=== PATIENT | male | born 1995 | race African-American/Black ===

== ENCOUNTER 2024-06-16 14:26 | Inpatient (IN) | payer MEDICAID ==
[~2024-06-16] VITALS: Ht 172.7 cm; Wt 66.7 kg
[2024-06-16] VITALS (29 sets, daily range): BP systolic 109–148; BP diastolic 61–102; PULSE 113–126; RESP 19–37; TEMP 36.8–37.2; O2SAT 99–100
[2024-06-16] MEDS: SODIUM CHLORIDE 0.9% 1,000 ML IV ONE ×3 (14:53→15:28)
[2024-06-16] MEDS: ONDANSETRON HCL 4MG/2ML INJ IV ONE (14:53)
[2024-06-16] MEDS: FAMOTIDINE 20MG/2ML VIAL IV ONE (14:53)
[2024-06-16 15:01] LABS: HEMATOCRIT. 41.6 % (42.0-52.0); HEMOGLOBIN. 12.9 g/dL (14.0-18.0); MEAN CORPUSCULAR HEMOGLOBIN 23.3 pg (28.0-32.0); MEAN CORPUSCULAR VOLUME 75.3 fL (80.0-94.0); MEAN PLATELET VOLUME 8.9 fl (7.4-10.4); PLATELET 288 x1000/uL (130-400); RED BLOOD CELL COUNT 5.53 mill/uL (4.7-6.1); WHITE BLOOD COUNT 35.6 x1000/uL (4.5-11.0)
[2024-06-16 15:02] LABS: DIFFERENTIAL COMMENT 1
[2024-06-16 15:04] LABS: BG BASE EXCESS -22.3 mmol/L (-2.0-3.0); BG CARBOXYHEMOGLOBIN 0.8 % (0.5-1.5); BG DEOXYHEMOGLOBIN 1.9 % (0.0-5.0); BG FRACTION INSPIRED OXYGEN 21; BG HCO3 ACT 4.2 mmol/L (21.0-28.0); BG METHEMOGLOBIN 0.1 % (0.5-1.5); BG OXYGEN SATURATION 98.1 % (94.0-98.0); BG OXYHEMOGLOBIN 97.2 % (94.0-98.0); BG PCO2 12.4 mmHg (35.0-48.0); BG PH 7.146 (7.350-7.450); BG PO2 127.9 mmHg (83.0-108.0); BG SAMPLE SITE RIGHT RADIAL; BG TOTAL HEMOGLOBIN 13.5 g/dL (13.5-17.5); BG VENT MODE ROOM AIR
[2024-06-16 15:07] LABS: CHLORIDE 83 mEq/L (98-107); POTASSIUM 5.4 mEq/L (3.5-5.1)
[2024-06-16 15:09] LABS: CALCIUM 9.9 mg/dL (8.7-10.4)
[2024-06-16 15:13] LABS: CREATININE 2.3 mg/dL (0.6-1.3); UREA NITROGEN BLOOD 63 mg/dL (9-23)
[2024-06-16] MEDS ORDERED: POTASSIUM CHLORIDE 40 MEQ in SODIUM CHLORIDE 0.9% 230 ML IV PRN (15:15)
[2024-06-16] MEDS ORDERED: MAGNESIUM 2 G PREMIX 50 ML IV PRN ×2 (15:15→17:00)
[2024-06-16] MEDS ORDERED: BLOOD SUGAR DIAGNOSTIC STRIP TEST PRN ×2 (15:15→17:00)
[2024-06-16] MEDS: DEXT 5%/0.9% NACL 1,000 ML IV SCH ×2 (15:15→22:26)
[2024-06-16] MEDS ORDERED: SODIUM PHOSPHATE 15 MMOL in SODIUM CHLORIDE 0.9% 245 ML IV PRN (15:15)
[2024-06-16] MEDS ORDERED: KCL 20MEQ/100ML PREMIX 100 ML IV PRN (15:15)
[2024-06-16] MEDS ORDERED: DEXTROSE 50% WATER 50ML SYRINGE IV PRN ×2 (15:15→17:00)
[2024-06-16 15:16] LABS: BETA HYDROXYBUTYRATE 8.1 mMol/L (0.0-0.3)
[2024-06-16] MEDS: BLOOD SUGAR DIAGNOSTIC STRIP TEST SCH ×2 (15:28→17:04)
[2024-06-16] MEDS: SODIUM CHLORIDE 0.9% 1,000 ML IV SCH ×2 (15:29→18:10)
[2024-06-16] MEDS: INSULIN REGULAR (DRIP) 100 UNITS in SODIUM CHLORIDE 0.9% 99 ML IV SCH (15:29)
[2024-06-16 15:32] LABS: CARBON DIOXIDE < 10 mEq/L (21-32)
[2024-06-16 15:33] LABS: GLUCOSE 577 mg/dL (70-105); SODIUM 114 mEq/L (136-145); TROPONIN I HIGH SENSITIVITY < 4 ng/L (3.0-53)
[2024-06-16 15:34] LABS: PLATELET ESTIMATE NORMAL
[2024-06-16 15:35] LABS: ANISOCYTOSIS 1+; HYPOCHROMASIA 1+; MICROCYTOSIS 1+
[2024-06-16 16:18] LABS: PHOSPHORUS 5.5 mg/dL (2.5-4.9)
[2024-06-16 16:40] LABS: CLARITY URINE CLEAR (CLEAR); COLOR URINE YELLOW (YELLOW); GLUCOSE URINE 3+ (NEGATIVE); KETONES URINE 3+ (NEGATIVE); LEUKOCYTE ESTERASE URINE NEGATIVE (NEGATIVE); NITRITE URINE NEGATIVE (NEGATIVE); OCCULT BLOOD URINE 3+ (NEGATIVE); PROTEIN URINE 2+ (NEGATIVE); SPECIFIC GRAVITY URINE 1.021 (1.005-1.030); UROBILINOGEN URINE 0.2 E.U./dL (0.2-1.0)
[2024-06-16] MEDS ORDERED: PIPERACILLIN/TAZO 3.375G/50ML 50 ML IV NR (16:45)
[2024-06-16 17:00] LABS: BG BASE EXCESS -21.9 mmol/L (-2.0-3.0); BG CARBOXYHEMOGLOBIN 0.8 % (0.5-1.5); BG DEOXYHEMOGLOBIN 1.5 % (0.0-5.0); BG FRACTION INSPIRED OXYGEN 21; BG HCO3 ACT 4.7 mmol/L (21.0-28.0); BG METHEMOGLOBIN 0.3 % (0.5-1.5); BG OXYGEN SATURATION 98.5 % (94.0-98.0); BG OXYHEMOGLOBIN 97.4 % (94.0-98.0); BG PCO2 13.7 mmHg (35.0-48.0); BG PO2 131.4 mmHg (83.0-108.0); BG SAMPLE SITE RIGHT RADIAL; BG TOTAL HEMOGLOBIN 12.5 g/dL (13.5-17.5); BG VENT MODE ROOM AIR
[2024-06-16] MEDS ORDERED: CLONIDINE 0.1MG TABLET PO PRN (17:00)
[2024-06-16] MEDS ORDERED: ONDANSETRON HCL 4MG/2ML INJ IV PRN (17:00)
[2024-06-16] MEDS ORDERED: DOCUSATE SODIUM 100MG CAPSULE PO PRN (17:00)
[2024-06-16] MEDS ORDERED: GUAIFENESIN 200MG/10ML SUGAR FREE UDC PO PRN (17:00)
[2024-06-16] MEDS ORDERED: POTASSIUM CHLORIDE 40 MEQ in SODIUM CHLORIDE 0.9% 250 ML IV PRN (17:00)
[2024-06-16] MEDS ORDERED: MAGNESIUM/ALUMINUM HYDROXIDE/SIMETHICONE 30ML UDC PO PRN (17:00)
[2024-06-16] MEDS ORDERED: ACETAMINOPHEN 325MG TABLET PO PRN (17:00)
[2024-06-16 17:12] LABS: WBC URINE 0-2 /hpf (0-2)
[2024-06-16 17:13] LABS: BACTERIA URINE 1+; SQUAMOUS EPITHELIAL CELL URINE FEW /lpf (RARE/1+)
[2024-06-16] MEDS: INSULIN REGULAR 100U/100ML PMX 100 ML IV SCH (18:09)
[2024-06-16 20:03] LABS: CHLORIDE 96 mEq/L (98-107); POTASSIUM 4.8 mEq/L (3.5-5.1); SODIUM 124 mEq/L (136-145)
[2024-06-16 20:04] LABS: CALCIUM 8.8 mg/dL (8.7-10.4)
[2024-06-16 20:09] LABS: UREA NITROGEN BLOOD 48 mg/dL (9-23)
[2024-06-16 20:11] LABS: PHOSPHORUS 2.6 mg/dL (2.5-4.9)
[2024-06-16 20:28] LABS: CARBON DIOXIDE < 10 mEq/L (21-32); CREATININE 1.6 mg/dL (0.6-1.3); GLUCOSE 331 mg/dL (70-105)
[2024-06-16] MEDS: PIPERACILLIN/TAZO 3.375G/50ML 50 ML IV SCH (22:00)
[2024-06-16] MEDS: LORAZEPAM 0.5MG TABLET PO PRN (22:26)
[2024-06-16] MEDS ORDERED: VANCOMYCIN 1.25GM PMX (XELLIA) 250 ML IV NR (23:00)
[2024-06-16] MEDS: VANCOMYCIN 1G PREMIX 200 ML IV NR (23:11)
[2024-06-17] VITALS (78 sets, daily range): BP systolic 119–162; BP diastolic 60–108; PULSE 92–135; RESP 15–39; TEMP 36.9–38.9; O2SAT 96–100
[2024-06-17] MEDS: ACETAMINOPHEN 325MG TABLET PO PRN (00:26)
[2024-06-17 00:29] LABS: CHLORIDE 102 mEq/L (98-107); POTASSIUM 4.3 mEq/L (3.5-5.1); SODIUM 130 mEq/L (136-145)
[2024-06-17 00:37] LABS: PHOSPHORUS 1.5 mg/dL (2.5-4.9)
[2024-06-17 00:44] LABS: CARBON DIOXIDE 10 mEq/L (21-32)
[2024-06-17 05:35] LABS: CARBON DIOXIDE 15 mEq/L (21-32); CHLORIDE 106 mEq/L (98-107); POTASSIUM 3.6 mEq/L (3.5-5.1); SODIUM 132 mEq/L (136-145); SODIUM 134 mEq/L (136-145)
[2024-06-17 05:36] LABS: CALCIUM 8.5 mg/dL (8.7-10.4); CARBON DIOXIDE 15 mEq/L (21-32)
[2024-06-17 05:40] LABS: CREATININE 1.4 mg/dL (0.6-1.3)
[2024-06-17 05:41] LABS: LDL CHOLESTEROL 42 mg/dL (5-100); TRIGLYCERIDE 143 mg/dL (0-150); UREA NITROGEN BLOOD 30 mg/dL (9-23)
[2024-06-17 05:42] LABS: CHOLESTEROL 96 mg/dL (<200); HDL CHOLESTEROL < 20 mg/dL (>55)
[2024-06-17 05:44] LABS: PHOSPHORUS 1.1 mg/dL (2.5-4.9)
[2024-06-17 05:46] LABS: T4 FREE 0.75 ng/dL (0.89-1.76)
[2024-06-17 05:47] LABS: THYROID STIMULATING HORMONE 1.17 uIU/mL (0.55-4.78)
[2024-06-17 06:11] LABS: GLUCOSE 175 mg/dL (70-105)
[2024-06-17] MEDS: KCL 20MEQ/100ML PREMIX 100 ML IV PRN (07:53)
[2024-06-17] MEDS: VANCOMYCIN 750MG PREMIX 150 ML IV SCH (08:38)
[2024-06-17] MEDS: INSULIN GLARGINE 100 UNITS/ML SUBCUT SCH ×2 (08:40→21:19)
[2024-06-17] MEDS: INSULIN LISPRO 100 UNITS/ML SUBCUT SCH ×2 (08:40→17:40)
[2024-06-17 09:47] LABS: *AMPHETAMINES SCREEN URINE NEGATIVE (NEGATIVE); *BARBITURATES SCREEN URINE NEGATIVE (NEGATIVE); *BENZODIAZEPINES SCREEN URINE NEGATIVE (NEGATIVE)
[2024-06-17 09:48] LABS: *COCAINE SCREEN URINE NEGATIVE (NEGATIVE); CANNABINOID URINE SCREEN PRESUMPTIVE POSITIVE (NEGATIVE); ECSTASY MDMA SCREEN URINE NEGATIVE (NEGATIVE); METHADONE URINE SCREEN NEGATIVE (NEGATIVE); OPIATES URINE SCREEN NEGATIVE (NEGATIVE); PHENCYCLIDINE URINE SCREEN NEGATIVE (NEGATIVE)
[2024-06-17] MEDS: SODIUM PHOSPHATE 15 MMOL in SODIUM CHLORIDE 0.9% 250 ML IV PRN (10:21)
[2024-06-17] MEDS: BLOOD SUGAR DIAGNOSTIC STRIP TEST SCH ×2 (11:34→16:31)
[2024-06-17] MEDS ORDERED: DEXTROSE 50% WATER 50ML SYRINGE IV PRN (14:45)
[2024-06-17 16:33] LABS: CHLORIDE 104 mEq/L (98-107); POTASSIUM 3.3 mEq/L (3.5-5.1); SODIUM 130 mEq/L (136-145)
[2024-06-17 16:34] LABS: CALCIUM 8.1 mg/dL (8.7-10.4); CARBON DIOXIDE 16 mEq/L (21-32)
[2024-06-17 16:39] LABS: CREATININE 1.2 mg/dL (0.6-1.3); GLUCOSE 307 mg/dL (70-105); UREA NITROGEN BLOOD 17 mg/dL (9-23)
[2024-06-17 16:41] LABS: PHOSPHORUS 1.1 mg/dL (2.5-4.9)
[2024-06-17 17:00] LABS: IRON 16 ug/dL (65-175)
[2024-06-17 17:02] LABS: TOTAL IRON BINDING CAPACITY 668 ug/dl (250-425)
[2024-06-17] MEDS: SODIUM CHLORIDE 0.9% 1,000 ML IV SCH (17:39)
[2024-06-17] MEDS: POTASSIUM PHOSPHATE 30 MMOL in SODIUM CHLORIDE 0.9% 500 ML IV NR (17:49)
[2024-06-18] VITALS (12 sets, daily range): BP systolic 127–146; BP diastolic 64–94; PULSE 102–134; RESP 18–36; TEMP 36.6–37.5; O2SAT 96–99
[2024-06-18] MEDS: SODIUM CHLORIDE 0.9% 1,000 ML IV ONE (03:41)
[2024-06-18] MEDS: METOCLOPRAMIDE HCL 10MG/2ML VIAL IV NR (03:45)
[2024-06-18 04:43] LABS: CHLORIDE 99 mEq/L (98-107); POTASSIUM 2.9 mEq/L (3.5-5.1); SODIUM 128 mEq/L (136-145)
[2024-06-18 04:44] LABS: CALCIUM 7.9 mg/dL (8.7-10.4); CARBON DIOXIDE 17 mEq/L (21-32)
[2024-06-18 04:49] LABS: GLUCOSE 182 mg/dL (70-105); UREA NITROGEN BLOOD 13 mg/dL (9-23)
[2024-06-18 04:57] LABS: PHOSPHORUS 0.9 mg/dL (2.5-4.9)
[2024-06-18] MEDS: POTASSIUM CHLORIDE 20MEQ TABLET SR PO NR (05:31)
[2024-06-18] MEDS: POTASSIUM PHOSPHATE 30 MMOL in SODIUM CHLORIDE 0.9% 490 ML IV NR (06:22)
[2024-06-18] MEDS: MAGNESIUM 2 G PREMIX 50 ML IV NR (06:23)
[2024-06-18 07:29] LABS: HEMATOCRIT. 28.8 % (42.0-52.0); HEMOGLOBIN. 9.5 g/dL (14.0-18.0); MEAN CORPUSCULAR HEMOGLOBIN 23.3 pg (28.0-32.0); MEAN CORPUSCULAR HGB CONC 33.1 g/dL (31.0-37.0); MEAN CORPUSCULAR VOLUME 70.3 fL (80.0-94.0); MEAN PLATELET VOLUME 8.8 fl (7.4-10.4); PLATELET 141 x1000/uL (130-400); RED CELL DISTRIBUTION WIDTH 15.5 % (11.6-14.6); WHITE BLOOD COUNT 15.7 x1000/uL (4.5-11.0)
[2024-06-18 07:42] LABS: DIFFERENTIAL COMMENT 1
[2024-06-18] MEDS: FERROUS SULFATE 325MG TABLET PO SCH (08:39)
[2024-06-18] MEDS: ASCORBIC ACID 250 MG TABLET PO SCH (08:40)
[2024-06-18 12:14] LABS: PHOSPHORUS 2.5 mg/dL (2.5-4.9)
[2024-06-18] MEDS: POTASSIUM CHLORIDE 20MEQ/PACKET PO NR (15:24)
[2024-06-18 16:59] LABS: HYPOCHROMASIA 1+; MICROCYTOSIS 2+; PLATELET ESTIMATE NORMAL
[2024-06-19] VITALS: BP 125/86; PULSE 114; RESP 19; TEMP 36.9; O2SAT 100
[2024-06-19 04:00] VITALS: BP 121/79; PULSE 118; RESP 19; TEMP 36.7; O2SAT 97
[2024-06-19 06:45] LABS: CARBON DIOXIDE 16 mEq/L (21-32); CHLORIDE 98 mEq/L (98-107); SODIUM 131 mEq/L (136-145)
[2024-06-19 06:46] LABS: CALCIUM 8.7 mg/dL (8.7-10.4)
[2024-06-19 06:48] LABS: HEMATOCRIT. 29.8 % (42.0-52.0); MEAN CORPUSCULAR HEMOGLOBIN 23.1 pg (28.0-32.0); MEAN CORPUSCULAR HGB CONC 33.7 g/dL (31.0-37.0); MEAN CORPUSCULAR VOLUME 68.7 fL (80.0-94.0); MEAN PLATELET VOLUME 8.5 fl (7.4-10.4); PLATELET 162 x1000/uL (130-400); RED BLOOD CELL COUNT 4.34 mill/uL (4.7-6.1); RED CELL DISTRIBUTION WIDTH 15.7 % (11.6-14.6); WHITE BLOOD COUNT 17.6 x1000/uL (4.5-11.0)
[2024-06-19 06:51] LABS: CREATININE 1.1 mg/dL (0.6-1.3); GLUCOSE 302 mg/dL (70-105); UREA NITROGEN BLOOD 14 mg/dL (9-23)
[2024-06-19 06:53] LABS: PHOSPHORUS 1.5 mg/dL (2.5-4.9)
[2024-06-19 06:56] LABS: DIFFERENTIAL COMMENT 1
[2024-06-19 07:03] LABS: TROPONIN I HIGH SENSITIVITY < 4 ng/L (3.0-53)
[2024-06-19 08:00] VITALS: BP 124/89; PULSE 100; RESP 17; TEMP 36.7; O2SAT 100
[2024-06-19] MEDS: POTASSIUM CHLORIDE 20MEQ/PACKET PO NR (08:45)
[2024-06-19] MEDS: INSULIN REGULAR (HUMULIN R) 1000UNITS/10ML VIAL IV NR (08:53)
[2024-06-19] MEDS: POTASSIUM PHOSPHATE 20 MMOL in DEXT 5% WATER 243.3333 ML IV NR (11:56)
[2024-06-19 12:00] VITALS: BP 127/82; PULSE 93; RESP 19; TEMP 36.3; O2SAT 98
[2024-06-19] MEDS: AMPICILLIN SOD/SULBACTAM NA 3 G in SODIUM CHLORIDE 0.9% 100 ML IV SCH (15:00)
[2024-06-19 16:00] VITALS: BP 122/73; PULSE 86; RESP 18; TEMP 36.7; O2SAT 98
[2024-06-19] MEDS: INSULIN LISPRO 100 UNITS/ML SUBCUT SCH (17:59)
[2024-06-19 20:00] VITALS: BP 135/20; PULSE 127; RESP 20; TEMP 36.6
[2024-06-19 20:28] LABS: HYPOCHROMASIA 1+; MICROCYTOSIS 3+; PLATELET ESTIMATE NORMAL
[2024-06-19] MEDS: INSULIN GLARGINE 100 UNITS/ML SUBCUT SCH (21:47)
[2024-06-20] VITALS: BP 137/83; PULSE 106; RESP 20; TEMP 36.7; O2SAT 96
[2024-06-20 04:00] VITALS: BP 134/83; PULSE 100; RESP 20; TEMP 36.6; O2SAT 98
[2024-06-20 06:25] LABS: CHLORIDE 97 mEq/L (98-107); SODIUM 131 mEq/L (136-145)
[2024-06-20 06:26] LABS: CALCIUM 7.8 mg/dL (8.7-10.4); CARBON DIOXIDE 23 mEq/L (21-32)
[2024-06-20 06:27] LABS: HEMATOCRIT. 28.1 % (42.0-52.0); HEMOGLOBIN. 9.3 g/dL (14.0-18.0); MEAN CORPUSCULAR HEMOGLOBIN 22.9 pg (28.0-32.0); MEAN CORPUSCULAR HGB CONC 33.3 g/dL (31.0-37.0); MEAN CORPUSCULAR VOLUME 68.7 fL (80.0-94.0); MEAN PLATELET VOLUME 8.7 fl (7.4-10.4); PLATELET 171 x1000/uL (130-400); RED BLOOD CELL COUNT 4.08 mill/uL (4.7-6.1); RED CELL DISTRIBUTION WIDTH 15.9 % (11.6-14.6); WHITE BLOOD COUNT 17.8 x1000/uL (4.5-11.0)
[2024-06-20 06:32] LABS: CREATININE 1.1 mg/dL (0.6-1.3); GLUCOSE 317 mg/dL (70-105); UREA NITROGEN BLOOD 12 mg/dL (9-23)
[2024-06-20 06:34] LABS: PHOSPHORUS 1.5 mg/dL (2.5-4.9)
[2024-06-20 06:46] LABS: DIFFERENTIAL COMMENT 1
[2024-06-20 08:00] VITALS: BP 135/83; PULSE 102; PULSE 105; RESP 20; TEMP 36.5; O2SAT 94; O2SAT 99
[2024-06-20] MEDS: POTASSIUM CHLORIDE 20MEQ/PACKET PO NR (08:36)
[2024-06-20] MEDS: POTASSIUM PHOSPHATE 20 MMOL in DEXT 5% WATER 243.3333 ML IV NR (10:28)
[2024-06-20 12:00] VITALS: BP 129/82; PULSE 104; RESP 20; TEMP 36.6; O2SAT 100
[2024-06-20 13:53] LABS: ANISOCYTOSIS 1+; PLATELET ESTIMATE NORMAL
[2024-06-20 16:00] VITALS: BP 144/86; PULSE 104; RESP 19; TEMP 36.7; O2SAT 99
[2024-06-20 20:00] VITALS: BP 122/76; PULSE 107; RESP 18; TEMP 37.3; O2SAT 100
[2024-06-20] MEDS ORDERED: INSULIN LISPRO 100 UNITS/ML SUBCUT SCH (21:00)
[2024-06-20] MEDS: INSULIN LISPRO (LOW DOSE) 100 UNITS/ML SUBCUT SCH (21:59)
[2024-06-20] MEDS: INSULIN GLARGINE 100 UNITS/ML SUBCUT SCH (22:00)
[2024-06-21] VITALS (7 sets, daily range): BP systolic 119–152; BP diastolic 78–91; PULSE 97–131; RESP 16–18; TEMP 36.3–37.5; O2SAT 96–100
[2024-06-21] MEDS: INSULIN LISPRO 100 UNITS/ML SUBCUT SCH ×2 (06:22→18:13)
[2024-06-21 06:46] LABS: HEMOGLOBIN. 9.4 g/dL (14.0-18.0); MEAN CORPUSCULAR HEMOGLOBIN 23.5 pg (28.0-32.0); MEAN CORPUSCULAR HGB CONC 33.6 g/dL (31.0-37.0); MEAN PLATELET VOLUME 9.5 fl (7.4-10.4); PLATELET 215 x1000/uL (130-400); RED CELL DISTRIBUTION WIDTH 16.1 % (11.6-14.6); WHITE BLOOD COUNT 19.3 x1000/uL (4.5-11.0)
[2024-06-21 06:55] LABS: CHLORIDE 100 mEq/L (98-107); POTASSIUM 4.1 mEq/L (3.5-5.1); SODIUM 136 mEq/L (136-145)
[2024-06-21 06:56] LABS: CALCIUM 7.7 mg/dL (8.7-10.4); CARBON DIOXIDE 24 mEq/L (21-32)
[2024-06-21 07:01] LABS: GLUCOSE 306 mg/dL (70-105); UREA NITROGEN BLOOD 11 mg/dL (9-23)
[2024-06-21 07:02] LABS: T4 FREE 0.83 ng/dL (0.89-1.76); THYROID STIMULATING HORMONE 1.44 uIU/mL (0.55-4.78)
[2024-06-21] MEDS ORDERED: INSULIN LISPRO 100 UNITS/ML SUBCUT SCH (07:20)
[2024-06-21 07:49] LABS: DIFFERENTIAL COMMENT 1
[2024-06-21 17:05] LABS: ANISOCYTOSIS 1+; HYPOCHROMASIA 1+; MICROCYTOSIS 2+; PLATELET ESTIMATE NORMAL
[2024-06-21] MEDS: POTASSIUM PHOSPHATE 15 MMOL in DEXT 5% WATER 245 ML IV NR (21:41)
[2024-06-21] MEDS: INSULIN GLARGINE 100 UNITS/ML SUBCUT SCH (21:43)
[2024-06-21] MEDS: SODIUM CHLORIDE 10% FOR INH 15ML NEB INH NR (22:00)
[2024-06-22] VITALS: BP 110/69; PULSE 93; RESP 16; TEMP 36.8; O2SAT 96
[2024-06-22 04:00] VITALS: BP 116/68; PULSE 100; RESP 18; TEMP 36.8; O2SAT 99
[2024-06-22 06:47] LABS: CHLORIDE 102 mEq/L (98-107); POTASSIUM 3.8 mEq/L (3.5-5.1); SODIUM 137 mEq/L (136-145)
[2024-06-22 06:48] LABS: CALCIUM 7.8 mg/dL (8.7-10.4); CARBON DIOXIDE 26 mEq/L (21-32)
[2024-06-22 06:51] LABS: HEMOGLOBIN. 9.1 g/dL (14.0-18.0); MEAN CORPUSCULAR HGB CONC 32.6 g/dL (31.0-37.0); MEAN CORPUSCULAR VOLUME 70.4 fL (80.0-94.0); MEAN PLATELET VOLUME 9.1 fl (7.4-10.4); PLATELET 320 x1000/uL (130-400); RED BLOOD CELL COUNT 3.97 mill/uL (4.7-6.1); RED CELL DISTRIBUTION WIDTH 16.4 % (11.6-14.6); WHITE BLOOD COUNT 18.9 x1000/uL (4.5-11.0)
[2024-06-22 06:53] LABS: CREATININE 0.9 mg/dL (0.6-1.3); GLUCOSE 292 mg/dL (70-105); UREA NITROGEN BLOOD 8 mg/dL (9-23)
[2024-06-22 06:55] LABS: PHOSPHORUS 2.6 mg/dL (2.5-4.9)
[2024-06-22 07:14] LABS: DIFFERENTIAL COMMENT 1
[2024-06-22 08:00] VITALS: BP 124/87; PULSE 91; RESP 18; TEMP 36.5; O2SAT 97
[2024-06-22 09:10] LABS: FOLICLE STIMULATING HORMONE 0.9 mIU/mL (1.5-12.4); PROLACTIN 12.6 ng/mL (3.6-31.5)
[2024-06-22 12:00] VITALS: BP 122/79; PULSE 95; RESP 19; TEMP 36.4; O2SAT 98
[2024-06-22] MEDS: INSULIN LISPRO 100 UNITS/ML SUBCUT SCH (12:16)
[2024-06-22] MEDS: LEVOTHYROXINE SODIUM 25MCG TABLET PO SCH (12:20)
[2024-06-22 14:14] LABS: MICROCYTOSIS 2+; PLATELET ESTIMATE NORMAL
[2024-06-22 14:16] LABS: ANISOCYTOSIS 1+
[2024-06-22 16:00] VITALS: BP 113/72; PULSE 100; RESP 18; TEMP 36.6; O2SAT 96
[2024-06-22 20:00] VITALS: BP 118/67; PULSE 116; RESP 20; TEMP 37.1; O2SAT 100
[2024-06-22] MEDS: INSULIN GLARGINE 100 UNITS/ML SUBCUT SCH (22:31)
[2024-06-23] VITALS (7 sets, daily range): BP systolic 115–130; BP diastolic 69–82; PULSE 79–109; RESP 16–20; TEMP 36.8–37.2; O2SAT 95–100
[2024-06-23] MEDS: SODIUM CHLORIDE 10% FOR INH 15ML NEB INH NR (22:14)
[2024-06-24] VITALS (7 sets, daily range): BP systolic 106–123; BP diastolic 56–76; PULSE 84–111; RESP 18–20; TEMP 36.4–36.9; O2SAT 94–100
[2024-06-24] MEDS: SODIUM CHLORIDE 10% FOR INH 15ML NEB INH NR (04:55)
[2024-06-24 10:08] LABS: QFT MITOGEN VALUE 0.49 IU/mL (.); QFT TB GOLD PLUS Indeterminate (Negative); QFT TB1 AG VALUE 0.07 IU/mL (.); QFT TB2 AG VALUE 0.07 IU/mL (.)
[2024-06-24 14:10] LABS: TESTOSTERONE FREE 1.5 pg/mL (9.3-26.5)
[2024-06-25] VITALS: BP 137/68; PULSE 103; RESP 20; TEMP 36.6; O2SAT 94
[2024-06-25 04:00] VITALS: BP 144/63; PULSE 98; RESP 20; TEMP 36.4; O2SAT 95
[2024-06-25 08:00] VITALS: BP 130/77; PULSE 94; RESP 16; TEMP 37.2; O2SAT 98
[2024-06-25 12:00] VITALS: BP 120/82; PULSE 87; RESP 18; TEMP 36.2; O2SAT 96
[2024-06-25 16:00] VITALS: BP 125/86; PULSE 104; RESP 20; TEMP 36.7; O2SAT 95
[2024-06-25 20:00] VITALS: BP 110/68; PULSE 104; RESP 18; TEMP 37.2; O2SAT 100
[2024-06-25] MEDS: INSULIN GLARGINE 100 UNITS/ML SUBCUT SCH (22:46)
[2024-06-26] VITALS: BP 107/69; PULSE 106; RESP 18; TEMP 37; O2SAT 100
[2024-06-26 04:00] VITALS: BP 114/74; PULSE 99; RESP 18; TEMP 37.1; O2SAT 97
[2024-06-26 08:00] VITALS: BP 112/76; PULSE 88; RESP 18; TEMP 36.3; O2SAT 97
[2024-06-26 12:00] VITALS: BP 106/49; PULSE 70; RESP 18; TEMP 36.5; O2SAT 99
[2024-06-26] MEDS: INSULIN LISPRO 100 UNITS/ML SUBCUT SCH ×2 (14:11→18:41)
[2024-06-26 16:00] VITALS: BP 119/85; PULSE 70; RESP 18; TEMP 36.7
[2024-06-26] MEDS: SODIUM CHLORIDE 10% FOR INH 15ML NEB INH SCH (16:36)
[2024-06-26 20:00] VITALS: BP 118/79; PULSE 116; RESP 17; TEMP 36.7; O2SAT 100
[2024-06-26] MEDS: INSULIN GLARGINE 100 UNITS/ML SUBCUT SCH (22:04)
[2024-06-27] VITALS: BP 125/74; PULSE 103; RESP 16; TEMP 37.4; O2SAT 99
[2024-06-27 04:00] VITALS: BP 119/78; PULSE 99; RESP 18; TEMP 37.2; O2SAT 100
[2024-06-27 08:00] VITALS: BP 105/77; PULSE 99; RESP 18; TEMP 36.1; O2SAT 98
[2024-06-27] MEDS: INSULIN LISPRO 100 UNITS/ML SUBCUT SCH (09:24)
[2024-06-27 12:00] VITALS: BP 101/64; PULSE 91; RESP 18; TEMP 36.5; O2SAT 99
[2024-06-27 16:00] VITALS: BP 114/68; PULSE 101; RESP 16; TEMP 36.4; O2SAT 98
[2024-06-27 20:00] VITALS: BP 117/73; PULSE 103; RESP 18; TEMP 36.9; O2SAT 100
[2024-06-27] MEDS: INSULIN GLARGINE 100 UNITS/ML SUBCUT SCH (21:50)
[2024-06-28] VITALS: BP 109/63; PULSE 105; RESP 18; TEMP 37.3; O2SAT 100
[2024-06-28 04:00] VITALS: PULSE 91; RESP 17; TEMP 36.7; O2SAT 100
[2024-06-28 08:00] VITALS: BP 114/74; PULSE 87; RESP 18; TEMP 36.3; O2SAT 97
[2024-06-28 12:00] VITALS: BP 105/75; PULSE 83; RESP 18; TEMP 36.4; O2SAT 97
[2024-06-28] MEDS: FLUCONAZOLE 100MG TABLET PO SCH (15:45)
[2024-06-28 16:00] VITALS: BP 119/77; PULSE 86; RESP 18; TEMP 36.6; O2SAT 99
[2024-06-28 20:00] VITALS: BP 128/88; PULSE 97; RESP 18; TEMP 36.6; O2SAT 100
[2024-06-28] MEDS: INSULIN GLARGINE 100 UNITS/ML SUBCUT SCH (22:39)
[2024-06-29] VITALS: BP 117/71; PULSE 92; RESP 20; TEMP 36.5; O2SAT 100
[2024-06-29 04:00] VITALS: BP 103/67; PULSE 91; RESP 20; TEMP 36.4; O2SAT 98
[2024-06-29 06:42] LABS: CHLORIDE 104 mEq/L (98-107); POTASSIUM 3.8 mEq/L (3.5-5.1); SODIUM 139 mEq/L (136-145)
[2024-06-29 06:44] LABS: CALCIUM 8.9 mg/dL (8.7-10.4); CARBON DIOXIDE 30 mEq/L (21-32)
[2024-06-29 06:49] LABS: CREATININE 0.9 mg/dL (0.6-1.3); GLUCOSE 94 mg/dL (70-105); UREA NITROGEN BLOOD 10 mg/dL (9-23)
[2024-06-29 06:50] LABS: BASOPHILS % 0.7 % (0.0-2.0); DIFFERENTIAL COMMENT 0; EOSINOPHILS % 1.1 % (0.0-5.0); HEMATOCRIT. 25.4 % (42.0-52.0); HEMOGLOBIN. 8.3 g/dL (14.0-18.0); LYMPHOCYTES % 16.1 % (20.0-50.0); MEAN CORPUSCULAR HEMOGLOBIN 23.7 pg (28.0-32.0); MEAN CORPUSCULAR HGB CONC 32.8 g/dL (31.0-37.0); MEAN CORPUSCULAR VOLUME 72.1 fL (80.0-94.0); MEAN PLATELET VOLUME 7.8 fl (7.4-10.4); NEUTROPHILS % 74.1 % (40.0-76.0); PLATELET 681 x1000/uL (130-400); RED BLOOD CELL COUNT 3.52 mill/uL (4.7-6.1); RED CELL DISTRIBUTION WIDTH 16.9 % (11.6-14.6); WHITE BLOOD COUNT 8.8 x1000/uL (4.5-11.0)
[2024-06-29 06:51] LABS: ALANINE AMINOTRANSFERASE 18 IU/L (10-49); ALBUMIN 3.4 g/dL (3.2-4.8); ASPARTATE AMINOTRANSFERASE 20 IU/L (<34)
[2024-06-29 06:52] LABS: BILIRUBIN DIRECT 0.1 mg/dL (<=3.0); BILIRUBIN TOTAL 0.4 mg/dL (0.1-1.0); PROTEIN TOTAL 7.2 g/dL (6.0-8.3)
[2024-06-29 08:00] VITALS: BP 107/68; PULSE 88; RESP 17; TEMP 36.7; O2SAT 98
[2024-06-29 12:00] VITALS: BP 105/63; PULSE 82; RESP 18; TEMP 36.4; O2SAT 98
[2024-06-29] MEDS ORDERED: LEVO25TA7 PO (16:18)
[2024-06-29] MEDS ORDERED: LEVO750T68 MT (16:18)
[2024-06-29] MEDS ORDERED: FERR-63 PO (16:18)
[2024-06-29] MEDS ORDERED: FLUC100T PO (16:18)
[2024-06-29 16:48] VITALS: BP 105/63; PULSE 75; TEMP 98.2; O2SAT 98
== END 2024-06-29 18:15 | disposition home or self-care (01) | DRG 720 ==
LOC: ER 14:26 → EDBEDREQTM 15:49 → EDBEDREQ 15:49 → MICUNO 16:45 → 6WST 06-18 03:13
PROVIDERS: ADMIT Internal Medicine; ATTEND Internal Medicine
DX: A41.51 Sepsis due to Escherichia coli [E. coli] (principal); E11.10 Type 2 diabetes mellitus with ketoacidosis without coma; E11.649 Type 2 diabetes mellitus with hypoglycemia without coma; J18.9 Pneumonia, unspecified organism; N17.9 Acute kidney failure, unspecified; E23.0 Hypopituitarism; E11.319 Type 2 diabetes mellitus with unspecified diabetic retinopathy without macular edema; E86.0 Dehydration; E83.39 Other disorders of phosphorus metabolism; E87.4 Mixed disorder of acid-base balance; Z79.4 Long term (current) use of insulin; D53.9 Nutritional anemia, unspecified; D50.9 Iron deficiency anemia, unspecified; R31.29 Other microscopic hematuria; E87.6 Hypokalemia; N39.0 Urinary tract infection, site not specified; Z91.148 Patient's other noncompliance with medication regimen for other reason; Z96.41 Presence of insulin pump (external) (internal); Z87.442 Personal history of urinary calculi; Z78.9 Other specified health status; Z55.6 Problems related to health literacy; H54.7 Unspecified visual loss; F12.90 Cannabis use, unspecified, uncomplicated; Z87.891 Personal history of nicotine dependence; E11.42 Type 2 diabetes mellitus with diabetic polyneuropathy; D75.839 Thrombocytosis, unspecified
CPT/HCPCS: 36415; 36600; 71045; 74176; 80048; 80051; 80061; 80076; 80202; 80305; 81003; 82010; 82040; 82375; 82533; 82728; 82805; 82962; 83001; 83002; 83036; 83540; 83550; 83605; 83735; 83930; 84100; 84132; 84145; 84146; 84402; 84403; 84439; 84443; 84484; 85025; 86480; 86635; 87070; 87077; 87116; 87149; 87153; 87186; 87556; 93005; 94070; 94640; 98960; 99291; A4606; J0295; J1815; J2405; J2543; J2765; J3370; J3475; J3480; J3490; J7030; J7040; J7042; J7050; J7060; J7131